=== PATIENT | female | born 1970 | race Caucasian/White ===

== ENCOUNTER 2016-10-04 06:53 | Emergency (ER) | payer SELFPAY ==
[2016-10-04] MEDS ORDERED: DUONEB 0.5 MG/3 MG ONE (06:59)
[2016-10-04 07:00] VITALS: BP 160/88; BMI 37.8
[2016-10-04] MEDS ORDERED: DUONEB 0.5 MG/3 MG NEB ONE (07:02)
[2016-10-04] MEDS ORDERED: ZOFRAN TAB 4 MG PO ONE (07:12)
[2016-10-04] MEDS ORDERED: PROTONIX INJ 40 MG VIAL IVP ONE (07:18)
[2016-10-04] MEDS ORDERED: SOLU-Medrol 125 MG VIAL IVP ONE (07:19)
--- NOTE | 2016-10-04 07:20 | DR.GENAD ---
HPI - PCP Primary Care Physician: nfd - Complaint/Symptoms Chief Complaint:: patient stated for the last 2 weeks she has had abd pain and trouble breathing and vomiting. - Nurses notes reviewed Nurses Notes Review: Yes - Source History Provided: Patient - Mode of Arrival Mode of Arrival: Ambulatory - Timing Onset of Chief Complaint: 10/04/16 Came on: Gradually - Duration Duration: Intermittent How lon Duration: Weeks - Location Location: stomach - Associated Signs and Symptoms Associated Signs and Symptoms: vomiting PMH - PMH Past Medical History: Yes Past Medical History: Asthma, Diabetes Past Surgical History: Yes Surgical History: Hysterectomy - Family History History of Family Medical Conditions: Yes Family Medical History: Cancer, [place] - Social History Does patient currently use any type of tobacco product: Yes Have you used tobacco products in the last 12 months: Yes Type of Tobacco Use: Cigarettes How many years tobacco product used: 10 Does any household member use tobacco: No Alcohol Use: None Do you use any recreational Drugs:: No Lives With: Family Lives Where: Home - infectious screening In the last 2 months have you had wt loss of >10#?: NO Have you had fever, night sweats or hemotysis?: No Have you traveled outside the country in the last 6 months?: No Isolation: Standard ROS - Review of Systems Constitutional: Fever Eyes: No Symptoms Reported ENTM: No Symptoms Reported Respiratoy: Non-Productive Cough Cardiovascular: No Symptoms Reported Gastrointestinal/Abdominal: Diarrhea, Nausea, Vomiting Genitourinary: No Symptoms Reported Neurological: No Symptoms Reported Musculoskeletal: No Symptoms Reported Integumentary: No Symptoms Reported Hematologic/Lymphatic: No Symptoms Reported Endocrine: No Symptoms Reported Psychiatric: No Symptoms Reported PE - Vital Signs Vitals: Temperature 98.4 F Pulse Rate 95 Respiratory Rate 18 Blood Pressure [Right Arm] 154/99 Blood Pressure 160/88 O2 Sat by Pulse Oximetry 97 - General Limitations: No Limitations General Appearance: Alert, In No Apparent Distress - Head Head Exam: Normal Inspection - Eyes Eye exam: Normal Appearance, EOMI. negative: Scleral Icterus, Conjunctival Injection - ENT ENT Exam: Normal Exam, Normal Oropharynx External Ear Exam: Normal External Inspection Throat Exam: Normal Inspection - Neck Neck Exam: Normal Inspection, Full ROM, Trachea Midline - Chest Chest Inspection: Normal Inspection - Respiratory Respiratory Exam: Normal Lung Sounds Bilat. negative: Accessory Muscle Use, Respiratory Distress Respiratory Exam: Bilateral Clear to Auscultation - Cardiovascular Cardiovascular Exam: Regular Rate - Abdominal Exam Abdominal Exam: Normal Inspection, Normal Bowel Sounds, Soft, Tenderness ( epigastric), Hyperactive Bowel Sounds. negative: Distention, Guarding Abdominal Tenderness: Epigastrium - Extremities Extremities Exam: Normal Inspection, Full ROM - Back Back Exam: Normal Inspection, Full ROM - Neurologic Neurological Exam: Alert, Oriented X3, CN II-XII Intact - Psychiatric Psychiatric Exam: Depressed - Skin Skin Exam: Intact, Normal Color ROR - Labs Reviewed Result Diagrams: 10/04/16 07:28 10/04/16 07:28 Laboratory: WBC 14.7 X10^3/uL (3.6-10.0) H 10/04/16 07:28 RBC 5.07 X10^6/uL (3.5-5.4) 10/04/16 07:28 Hgb 14.1 g/dL (12.0-16.0) 10/04/16 07:28 Hct 42.4 % (36.0-47.0) 10/04/16 07:28 MCV 83.5 fL (80.0-100.0) 10/04/16 07:28 MCH 27.8 pg (27.0-34.0) 10/04/16 07:28 MCHC 33.3 g/dL (33.0-35.0) 10/04/16 07:28 RDW 13.7 % (11.6-16.5) 10/04/16 07:28 Plt Count 238 X10^3/uL (150.0-450.0) 10/04/16 07:28 MPV 8.7 fL (7.4-11.0) 10/04/16 07:28 Neut % 68.7 % (42.0-75.0) 10/04/16 07:28 Lymph % 22.4 % (21.0-51.0) 10/04/16 07:28 [place] % 7.8 % (0.0-13.0) 10/04/16 07:28 Eos % 0.7 % (0.9-2.9) L 10/04/16 07:28 Baso % 0.4 % (0.2-1.0) 10/04/16 07:28 Neut # 10.1 x10^3/uL (2.2-4.8) H 10/04/16 07:28 Lymph # 3.3 X10^3/uL (1.3-2.9) H 10/04/16 07:28 [place] # 1.2 x10^3/uL (0.3-0.8) H 10/04/16 07:28 Eos # 0.1 x10^3/uL (0.0-0.2) 10/04/16 07:28 Baso # 0.1 X10^3/uL (0.0-0.1) 10/04/16 07:28 Absolute Nucleated RBC 0.0 /100WBC 10/04/16 07:28 Sodium 146 mmol/L (136-145) H 10/04/16 07:28 Corrected Sodium 147 mmol/L (136-145) H 10/04/16 07:28 Potassium 3.3 mmol/L (3.5-5.1) L 10/04/16 07:28 Chloride 107 mmol/L (98-107) 10/04/16 07:28 Carbon Dioxide 26.6 mmol/L (21-32) 10/04/16 07:28 BUN 11 mg/dL (7-18) 10/04/16 07:28 Creatinine 0.86 mg/dL (0.55-1.02) 10/04/16 07:28 Est GFR (MDRD) Af Amer > 60 (>60) 10/04/16 07:28 Est GFR (MDRD) Non-Af > 60 (>60) 10/04/16 07:28 Glucose 157 mg/dL (65-99) H 10/04/16 07:28 Calcium 9.6 mg/dL (8.5-10.1) 10/04/16 07:28 Corrected Calcium TNP 10/04/16 07:28 Total Bilirubin 0.30 mg/dL (0.2-1.0) 10/04/16 07:28 AST 37 Units/L (15-37) 10/04/16 07:28 ALT 99 Units/L (12-78) H 10/04/16 07:28 Alkaline Phosphatase 144 Units/L (46-116) H 10/04/16 07:28 Total Protein 8.0 g/dL (6.4-8.2) 10/04/16 07:28 Albumin 3.6 g/dL (3.4-5.0) 10/04/16 07:28 Globulin 4.4 g/dL (2.5-4.5) 10/04/16 07:28 Albumin/Globulin Ratio 0.8 Ratio (1.1-2.1) L 10/04/16 07:28 Amylase 38 Units/L (25-115) 10/04/16 07:28 Lipase 137 Units/L (73-393) 10/04/16 07:28 H. pylori IgG Antibody Positive (NEGATIVE) A 10/04/16 07:28 - XRAY XRAY Interpreted by: Radiologist XRAY Findings: AAS: normal - Diagnosis Discharge Problem: Gastritis due to Helicobacter species - Discharge Plan Condition: Stable Prescriptions: Amoxicillin-Clarithromycin W/ [PrevPac 14-day pack] 1 dose PO BID #1 pkg Ondansetron [Zofran Odt] 4 mg PO Q8H PRN #12 tab PRN Reason: Nausea/Vomiting - Follow ups/Referrals Follow ups/Referrals: NFD,None [Primary Care Provider] - 3 days - Instructions
[2016-10-04 07:35] LABS: BASOPHILS # (AUTO) 0.1 X10^3/uL (0.0-0.1); BASOPHILS % (AUTO) 0.4 % (0.2-1.0); EOSINOPHILS # (AUTO) 0.1 x10^3/uL (0.0-0.2); EOSINOPHILS % (AUTO) 0.7 % (0.9-2.9); HEMATOCRIT 42.4 % (36.0-47.0); HEMOGLOBIN 14.1 g/dL (12.0-16.0); LYMPHOCYTES # (AUTO) 3.3 X10^3/uL (1.3-2.9); LYMPHOCYTES % (AUTO) 22.4 % (21.0-51.0); MEAN CORPUSCULAR HEMOGLOBIN 27.8 pg (27.0-34.0); MEAN CORPUSCULAR HGB CONC 33.3 g/dL (33.0-35.0); MEAN CORPUSCULAR VOLUME 83.5 fL (80.0-100.0); MEAN PLATELET VOLUME 8.7 fL (7.4-11.0); MONOCYTES # (AUTO) 1.2 x10^3/uL (0.3-0.8); MONOCYTES % (AUTO) 7.8 % (0.0-13.0); NEUTROPHILS # (AUTO) 10.1 x10^3/uL (2.2-4.8); NEUTROPHILS % (AUTO) 68.7 % (42.0-75.0); PLATELET COUNT 238 X10^3/uL (150.0-450.0); RED BLOOD COUNT 5.07 X10^6/uL (3.5-5.4); RED CELL DISTRIBUTION WIDTH 13.7 % (11.6-16.5); WHITE BLOOD COUNT 14.7 X10^3/uL (3.6-10.0)
[2016-10-04 07:46] LABS: ALANINE AMINOTRANSFERASE 99 Units/L (12-78); ALBUMIN 3.6 g/dL (3.4-5.0); ALKALINE PHOSPHATASE 144 Units/L (46-116); AMYLASE 38 Units/L (25-115); ASPARTATE AMINO TRANSFERASE 37 Units/L (15-37); BLOOD UREA NITROGEN 11 mg/dL (7-18); CALCIUM 9.6 mg/dL (8.5-10.1); CARBON DIOXIDE 26.6 mmol/L (21-32); CHLORIDE 107 mmol/L (98-107); COR NA(FOR HYPERGLY) 147 mmol/L (136-145); CREATININE 0.86 mg/dL (0.55-1.02); GLUCOSE 157 mg/dL (65-99); LIPASE 137 Units/L (73-393); SODIUM 146 mmol/L (136-145); eGFR BLACK RACES > 60 (>60); eGFR NON BLACK RACES > 60 (>60)
--- NOTE | 2016-10-04 07:47 | RAD ---
Acute abdominal series Indication: Vomiting with abdominal pain Comparison: None available Findings: The trachea is midline. The cardiac silhouette is unremarkable. The lungs are clear without focal infiltrate or effusion. The bony thorax is unremarkable. Flat and upright evaluation of the abdomen demonstrates a normal bowel gas pattern. No pathological soft tissue mass or calcification can be observed. The bony structures are grossly intact. Previou s cholecystectomy is noted. IMPRESSION: 1. No acute cardiopulmonary disease. 2. No evidence for acute abdominal pathology identified. Reported By:
[2016-10-04 08:12] LABS: BILIRUBIN,URINE NEGATIVE (NEGATIVE); BLOOD/HEMOGLOBIN,URINE 3+ (NEGATIVE); GLUCOSE, URINE NEGATIVE (NEGATIVE); KETONES,URINE NEGATIVE (NEGATIVE); LEUKOCYTE ESTERASE ,URINE NEGATIVE (NEGATIVE); NITRITES,URINE NEGATIVE (NEGATIVE); PROTEIN,URINE 2+ (NEGATIVE); UROBILINOGEN,URINE NORMAL (NORMAL)
[2016-10-04 08:46] LABS: APPEARANCE,URINE CLEAR (CLEAR); BACTERIA,URINE NEGATIVE /HPF (NEGATIVE); CALCIUM OXALATE CRYSTALS,UR FEW /HPF (NEGATIVE); COLOR,URINE YELLOW (YELLOW); HYALINE CASTS, URINE MANY /LPF (NEGATIVE); MUCUS,URINE MANY /HPF (NEGATIVE); SQUAMOUS EPITHELIAL CELL,UR FEW /HPF (NEGATIVE)
== END 2016-10-04 08:08 | disposition home or self-care (01) ==
LOC: ER 06:53
DX: B96.81 Helicobacter pylori [H. pylori] as the cause of diseases classified elsewhere (principal)
CPT/HCPCS: 36415; 74022; 80053; 81001; 82150; 83690; 85025; 86677; 96374; 96375; 99283; A4216; A4222; J7620

== ENCOUNTER 2016-10-05 19:27 | Observation (INO) | payer SELFPAY ==
[2016-10-05] MEDS ORDERED: DUONEB 0.5 MG/3 MG ONE (19:30)
[2016-10-05] MEDS ORDERED: SOLU-Medrol 125 MG VIAL ONE (19:32)
[2016-10-05] MEDS ORDERED: DUONEB 0.5 MG/3 MG NEB ONE ×2 (19:43→19:44)
[2016-10-05] MEDS ORDERED: SOLU-Medrol 125 MG VIAL IVP ONE (19:43)
--- NOTE | 2016-10-05 19:49 | DR.GENAD ---
HPI - PCP Primary Care Physician: YFN - HPI Comment HPI Comment: PATIENT TOOK MED AT HOME WITHOUT RELIEF. STILL SOB IN ED.SHE IS ALSO HAVING PERSISTENT COUGHINH, PRODUCTIVE, YELLOW SPUTUM. NO FEVER. HISTORY OF ASTHMA. BELIEVE SHE IS HAVING ASTHMA EXACERBATION. - Complaint/Symptoms Chief Complaint Doctors Comments: SOB, CHEST PAIN AND WHEEZING. Chief Complaint:: "I can't breath. I'm having an asthma attack." - Nurses notes reviewed Nurses Notes Review: Yes - Source History Provided: Patient - Mode of Arrival Mode of Arrival: Ambulatory - Timing Onset of Chief Complaint: 10/05/16 Came on: Suddenly - Duration Duration: Constant Duration: Days - Severity Severity: Moderate PMH - PMH Past Medical History: Yes Past Medical History: Asthma, Diabetes Past Surgical History: Yes Surgical History: Hysterectomy - Family History History of Family Medical Conditions: Yes Family Medical History: Cancer, [place] - Social History Does patient currently use any type of tobacco product: Yes Have you used tobacco products in the last 12 months: Yes Type of Tobacco Use: Cigarettes Does any household member use tobacco: Yes Alcohol Use: None Do you use any recreational Drugs:: No Lives With: Significant Other Lives Where: Home - infectious screening In the last 2 months have you had wt loss of >10#?: NO Have you had fever, night sweats or hemotysis?: No Have you traveled outside the country in the last 6 months?: No Isolation: Standard ROS - Review of Systems Constitutional: No Symptoms Reported, Weakness, Fatigue. negative: Chills, Fever Eyes: No Symptoms Reported. negative: Eye Pain, Discharge ENTM: Ear Pain, Nose Discharge, Nose Congestion, Throat Pain Respiratoy: No Symptoms Reported Cardiovascular: Chest Pain Gastrointestinal/Abdominal: No Symptoms Reported, Abdominal Pain, Nausea. negative: Diarrhea, Vomiting Genitourinary: No Symptoms Reported. negative: Dysuria, Frequency, Hematuria Neurological: Headache, Weakness, Dizziness Musculoskeletal: Muscle Pain Integumentary: No Symptoms Reported Hematologic/Lymphatic: No Symptoms Reported Endocrine: No Symptoms Reported All Other Systems: Reviewed and Negative PE - Vital Signs Vitals: Temperature 99.5 F Pulse Rate 108 Respiratory Rate 26 Blood Pressure [Right Arm] 154/99 Blood Pressure 174/109 O2 Sat by Pulse Oximetry 99 - General Limitations: No Limitations General Appearance: Alert - Head Head Exam: Normal Inspection - Eyes Eye exam: Normal Appearance - ENT ENT Exam: Normal External Ear Exam External Ear Exam: Normal External Inspection TM/Canal Exam: Bilateral Normal Nose Exam: Normal Nose Exam Mouth Exam: Normal Inspection Throat Exam: Normal Inspection - Neck Neck Exam: Trachea Midline. negative: Tenderness, Meningismus, Lymphadenopathy - Chest Chest Inspection: Symmetric Chest Wall Rise - Respiratory Respiratory Exam: Respiratory Distress. negative: Chest Wall Tenderness Respiratory Exam: Bilateral Wheezing, Bilateral Rhonchi, Upper Wheezing, Upper Rhonchi, Lower Wheezing, Lower Rhonchi - Cardiovascular Cardiovascular Exam: Regular Rate, Normal Rhythm, Normal Heart Sounds - Abdominal Exam Abdominal Exam: Normal Bowel Sounds, Soft. negative: Tenderness - Extremities Extremities Exam: Normal Inspection - Back Back Exam: Normal Inspection - Neurologic Neurological Exam: Alert, Oriented X3, CN II-XII Intact, Normal Gait, Reflexes Normal. negative: Motor Sensory Deficit - Psychiatric Psychiatric Exam: Anxious - Skin Skin Exam: Normal Color MDM - Additional Information Additional Information Obtained From: Family - Differential Diagnosis Differential Diagnosis: ASTHMA EXACERBATION, BRONCHITIS, PNEUMONIA Course - Treatment Treatment: SEE ORDERS. - Reevaluation 1st: Improved (NEB TREATMENT IN ED. SOB IMPROVING.) 2nd: Improved - Consultation Consultation Comments: DISCUSS PATIENT WITH DR. PABLO. HE WILL ADMIT PATIENT. - Education/Counseling Education/Counseling: Patient, Family, Education Educated On: Treatment, Diagnosis ROR - Labs Reviewed Laboratory Results Reviewed?: Yes Result Diagrams: 10/06/16 04:25 10/05/16 19:40 Laboratory: WBC 19.8 X10^3/uL (3.6-10.0) H 10/06/16 04:25 RBC 4.72 X10^6/uL (3.5-5.4) 10/06/16 04:25 Hgb 13.1 g/dL (12.0-16.0) 10/06/16 04:25 Hct 39.9 % (36.0-47.0) 10/06/16 04:25 MCV 84.6 fL (80.0-100.0) 10/06/16 04:25 MCH 27.7 pg (27.0-34.0) 10/06/16 04:25 MCHC 32.7 g/dL (33.0-35.0) L 10/06/16 04:25 RDW 13.7 % (11.6-16.5) 10/06/16 04:25 Plt Count 271 X10^3/uL (150.0-450.0) 10/06/16 04:25 MPV 9.5 fL (7.4-11.0) 10/06/16 04:25 Neut % 85.9 % (42.0-75.0) H 10/06/16 04:25 Lymph % 10.8 % (21.0-51.0) L 10/06/16 04:25 [place] % 3.0 % (0.0-13.0) 10/06/16 04:25 Eos % 0.0 % (0.9-2.9) L 10/06/16 04:25 Baso % 0.3 % (0.2-1.0) 10/06/16 04:25 Neut # 17.0 x10^3/uL (2.2-4.8) H 10/06/16 04:25 Lymph # 2.1 X10^3/uL (1.3-2.9) 10/06/16 04:25 [place] # 0.6 x10^3/uL (0.3-0.8) 10/06/16 04:25 Eos # 0.0 x10^3/uL (0.0-0.2) 10/06/16 04:25 Baso # 0.1 X10^3/uL (0.0-0.1) 10/06/16 04:25 Absolute Nucleated RBC 0.0 /100WBC 10/06/16 04:25 Sample Site Lr 10/05/16 20:37 ABG pH 7.440 (7.35-7.45) 10/05/16 20:37 ABG pCO2 36.0 mmHg (35.0-45.0) 10/05/16 20:37 ABG pO2 60.0 mmHg (80.0-100.0) L 10/05/16 20:37 ABG HCO3 24.5 mmol/L (22-26) 10/05/16 20:37 ABG O2 Saturation 92.0 % (90-100) 10/05/16 20:37 ABG Base Excess 0.6 mmol/L (-2.0-2.0) 10/05/16 20:37 Sandeep Test Pos 10/05/16 20:37 A-a Gradient 45.0 mmHg 10/05/16 20:37 FiO2 21.000 10/05/16 20:37 Blood Gas Comments Pia well ae 10/05/16 20:37 Sodium 143 mmol/L (136-145) 10/05/16 19:40 Corrected Sodium 145 mmol/L (136-145) 10/05/16 19:40 Potassium 4.7 mmol/L (3.5-5.1) 10/05/16 19:40 Chloride 105 mmol/L (98-107) 10/05/16 19:40 Carbon Dioxide 22.4 mmol/L (21-32) 10/05/16 19:40 BUN 18 mg/dL (7-18) 10/05/16 19:40 Creatinine 0.97 mg/dL (0.55-1.02) 10/05/16 19:40 Est GFR (MDRD) Af Amer > 60 (>60) 10/05/16 19:40 Est GFR (MDRD) Non-Af > 60 (>60) 10/05/16 19:40 Glucose 186 mg/dL (65-99) H 10/05/16 19:40 Calcium 9.6 mg/dL (8.5-10.1) 10/05/16 19:40 Corrected Calcium TNP 10/05/16 19:40 Total Bilirubin 0.20 mg/dL (0.2-1.0) 10/05/16 19:40 AST 20 Units/L (15-37) 10/05/16 19:40 ALT 71 Units/L (12-78) 10/05/16 19:40 Alkaline Phosphatase 129 Units/L (46-116) H 10/05/16 19:40 Total Protein 7.8 g/dL (6.4-8.2) 10/05/16 19:40 Albumin 3.6 g/dL (3.4-5.0) 10/05/16 19:40 Globulin 4.2 g/dL (2.5-4.5) 10/05/16 19:40 Albumin/Globulin Ratio 0.9 Ratio (1.1-2.1) L 10/05/16 19:40 - XRAY XRAY Interpreted by: Self XRAY Findings: XRRAY DISCUSS WITH PATIENT AND HER . - Diagnosis Discharge Problem: Acute bronchitis Qualifiers: Bronchitis organism: other organism Qualified Code(s): J20.8 - Acute bronchitis due to other specified organisms Acute asthma exacerbation Qualifiers: Asthma severity: moderate persistent Qualified Code(s): J45.41 - Moderate persistent asthma with (acute) exacerbation - Discharge Plan Disposition: ADMITTED INPATIENT Condition: Stable - Follow ups/Referrals - Instructions
[2016-10-05 19:57] LABS: BASOPHILS # (AUTO) 0.1 X10^3/uL (0.0-0.1); HEMOGLOBIN 13.6 g/dL (12.0-16.0); MEAN CORPUSCULAR VOLUME 84.1 fL (80.0-100.0); MONOCYTES # (AUTO) 1.8 x10^3/uL (0.3-0.8)
[2016-10-05 20:01] LABS: BASOPHILS % (AUTO) 0.4 % (0.2-1.0); HEMATOCRIT 41.4 % (36.0-47.0); LYMPHOCYTES % (AUTO) 12.7 % (21.0-51.0); MEAN CORPUSCULAR HEMOGLOBIN 27.7 pg (27.0-34.0); MEAN PLATELET VOLUME 9.2 fL (7.4-11.0); MONOCYTES % (AUTO) 7.5 % (0.0-13.0); NEUTROPHILS # (AUTO) 18.8 x10^3/uL (2.2-4.8); NEUTROPHILS % (AUTO) 79.4 % (42.0-75.0); PLATELET COUNT 292 X10^3/uL (150.0-450.0); RED BLOOD COUNT 4.92 X10^6/uL (3.5-5.4); RED CELL DISTRIBUTION WIDTH 13.9 % (11.6-16.5)
[2016-10-05 20:04] LABS: WHITE BLOOD COUNT 23.7 X10^3/uL (3.6-10.0)
--- NOTE | 2016-10-05 20:04 | RAD ---
AP Chest Indication: Chest pain Comparison: 10/04/2016 Findings: The trachea is midline. The cardiac silhouette is unremarkable. There is increased opacity project ing within the periphery of the left lung base, this is suspected to represent soft tissue attenuati on secondary to the left breast soft tissues; however a developing infiltrate in this location is no t entirely excluded and clinical correlation is needed. The remaining lungs are clear. No pleural ef fusion or pneumothorax. No acute osseous abnormality. Impression: See above. Reported By:
[2016-10-05 20:05] LABS: ALANINE AMINOTRANSFERASE 71 Units/L (12-78); ALBUMIN 3.6 g/dL (3.4-5.0); ALKALINE PHOSPHATASE 129 Units/L (46-116); ASPARTATE AMINO TRANSFERASE 20 Units/L (15-37); BLOOD UREA NITROGEN 18 mg/dL (7-18); CALCIUM 9.6 mg/dL (8.5-10.1); CARBON DIOXIDE 22.4 mmol/L (21-32); CHLORIDE 105 mmol/L (98-107); COR NA(FOR HYPERGLY) 145 mmol/L (136-145); CREATININE 0.97 mg/dL (0.55-1.02); GLUCOSE 186 mg/dL (65-99); SODIUM 143 mmol/L (136-145); TOTAL PROTEIN 7.8 g/dL (6.4-8.2); eGFR BLACK RACES > 60 (>60); eGFR NON BLACK RACES > 60 (>60)
[2016-10-05] MEDS ORDERED: TUSSIONEX PENNKINETIC SUSP PO ONE (20:23)
[2016-10-05] MEDS ORDERED: ROCEPHIN VIAL 1 GM 1 GM in NS 50 ML IV + SPIKE MINIBAG* 50 ML IV ONE (20:35)
[2016-10-05] MEDS ORDERED: ATIVAN INJ 2 MG VIAL IVP ONE (20:37)
[2016-10-05] MEDS ORDERED: ROCEPHIN VIAL 1 GM ONE (20:38)
[2016-10-05] MEDS ORDERED: ATIVAN INJ 2 MG VIAL ONE (20:41)
[2016-10-05] MEDS ORDERED: NS 50 ML IV + SPIKE MINIBAG* 50 ML IV ONE (20:41)
[2016-10-05 20:42] LABS: ABG ALLEN TEST POS; ABG BASE EXCESS 0.6 mmol/L (-2.0-2.0); ABG HCO3 24.5 mmol/L (22-26)
[2016-10-05] MEDS ORDERED: TUSSIONEX PENNKINETIC SUSP ONE (20:50)
[2016-10-05] MEDS ORDERED: TYGACIL 50 MG VIAL 100 MG in NS 100 ML IV 100 ML IV ONE (21:38)
[2016-10-05] MEDS ORDERED: NS 250 ML IV 250 ML IV ONE (22:49)
[2016-10-05] MEDS ORDERED: PREVNAR 13 IM ONE (23:14)
[2016-10-06] MEDS: DUONEB 0.5 MG/3 MG NEB SCH ×4 (00:39→13:00)
[2016-10-06 06:15] LABS: BASOPHILS # (AUTO) 0.1 X10^3/uL (0.0-0.1); BASOPHILS % (AUTO) 0.3 % (0.2-1.0); HEMATOCRIT 39.9 % (36.0-47.0); HEMOGLOBIN 13.1 g/dL (12.0-16.0); LYMPHOCYTES # (AUTO) 2.1 X10^3/uL (1.3-2.9); LYMPHOCYTES % (AUTO) 10.8 % (21.0-51.0); MEAN CORPUSCULAR HEMOGLOBIN 27.7 pg (27.0-34.0); MEAN CORPUSCULAR HGB CONC 32.7 g/dL (33.0-35.0); MEAN CORPUSCULAR VOLUME 84.6 fL (80.0-100.0); MEAN PLATELET VOLUME 9.5 fL (7.4-11.0); MONOCYTES # (AUTO) 0.6 x10^3/uL (0.3-0.8); NEUTROPHILS % (AUTO) 85.9 % (42.0-75.0); PLATELET COUNT 271 X10^3/uL (150.0-450.0); RED BLOOD COUNT 4.72 X10^6/uL (3.5-5.4); RED CELL DISTRIBUTION WIDTH 13.7 % (11.6-16.5); WHITE BLOOD COUNT 19.8 X10^3/uL (3.6-10.0)
[2016-10-06] MEDS ORDERED: TYGACIL 50 MG VIAL 50 MG in NS 100 ML IV 100 ML IV SCH (09:00)
[2016-10-06] MEDS ORDERED: PREDNISONE TAB 10 MG PO SCH (09:00)
[2016-10-06] MEDS ORDERED: SYMBICORT INH 160/4.5 mcg IN SCH (10:15)
--- NOTE | 2016-10-06 10:54 | DR.H&P ---
H&P - History & Physical for Day of: H&P Date: 10/05/16 - Chief Complaint Chief Complaint: SHORTNESS OF BREATH - Allergies Allergies/Adverse Reactions: Allergies Allergy/AdvReac Type Severity Reaction Status Date / Time Aloe Allergy Unknown Verified 10/04/16 06:54 Diphenhydramine Allergy Unknown Verified 10/04/16 06:54 [From Benadryl] Dextromethorphan Allergy Verified 10/04/16 06:54 [From Mucinex DM] Guaifenesin [From Mucinex DM] Allergy Verified 10/04/16 06:54 Yellow Dye [From Mucinex DM] Allergy Verified 10/04/16 06:54 - History of Present Illness History of Present Illness: PATIENT PRESENTED TO THE EMERGENCY ROOM WITH COMPLAINT OF SHORTNEES OF BREATH AND STATES SHE IS HAVING AN ASTHMA ATTACK. UPON ARRIVAL TO THE EMERGENCY ROOM PATIENT OXYGEN SATURATION WAS 96 ON RA. LABS REVEALED AN ELEVATED WBC COUNT OF 23.7. pATINET ADMITED WITH ASTHMA EXACERBATION AND BROCHITIS - Past Medical History Past Medical History: Asthma, Diabetes - Past Surgical History Surgical History: Hysterectomy - Family History Family Medical History: Cancer, [place] - Social History Does patient currently use any type of tobacco product: Yes Have you used tobacco products in the last 12 months: Yes Type of Tobacco Use: Cigarettes How many years tobacco product used: 10 Does any household member use tobacco: Yes Alcohol Use: None Drug Use: None - Review of Systems Constitutional: Weakness Eyes: No Symptoms Reported ENT: Nose Discharge, Nose Congestion Respiratory: Cough, Shortness of Breath, SOB with Excertion Cardiovascular: No Symptoms Reported Gastrointestinal: Nausea, Abdominal Pain Genitourinary: No Symptoms Reported Musculoskeletal: No Symptoms Reported Skin: No Symptoms Reported Neurological: No Symptoms Reported - Physical Exam Vital Signs: Temperature 97.5 F Pulse Rate [Right Brachial] 92 Pulse Rate 93 Respiratory Rate 20 Blood Pressure [Right Arm] 132/80 O2 Sat by Pulse Oximetry 93 Oriented: Normal Eyes: Normal Ear: Normal Nose: Normal Throat: Normal Respiratory: Clear Throughout Cardiovascular: Normal : Normal Auscultation: Bowel Sounds: Normal Palpation: Normal Tenderness: Normal Skin: Normal Musculoskeletal: Normal Psychiatric: Normal Mood Description: Calm, Appropriate Affect: Normal Speech Pattern: Clear, Appropriate - Assessment/Plan (1) Acute asthma exacerbation Qualifiers: Asthma severity: moderate persistent Qualified Code(s): J45.41 - Moderate persistent asthma with (acute) exacerbation Status: Acute Plan: ALBUTEROL NEBULIZER OXGEN (2) Acute bronchitis Qualifiers: Bronchitis organism: other organism Qualified Code(s): J20.8 - Acute bronchitis due to other specified organisms Status: Acute Plan: TYGACIL
--- NOTE | 2016-10-06 11:43 | RAD ---
HISTORY: Asthma, nausea, abdominal pain Study: Acute abdominal series Comparison: October 05, 2016 Findings: The trachea is midline. The cardiac silhouette is unremarkable. The lungs are clear without focal infiltrate or effusion. The bony thorax is unremarkable. Flat plate and upright evaluation of the abdomen demonstrates a normal bowel gas pattern. No pneumop eritoneum is identified.. No pathological soft tissue mass or calcification can be observed. The b abdirizak structures are grossly intact. IMPRESSION: 1. No acute cardiopulmonary disease. 2. No evidence for acute abdominal pathology identified. Reported By:
[2016-10-06 12:49] VITALS: BMI 42.7
[2016-10-06 12:54] VITALS: BP 140/76
[2016-10-06] MEDS ORDERED: PULMICORT NEB TX 0.5 MG NEB SCH (21:00)
== END 2016-10-06 16:25 | disposition home or self-care (01) ==
LOC: ER 19:30 → MED/SURG 21:51
PROVIDERS: ADMIT Obstetrics & Gynecology Obstetrics; ATTEND Obstetrics & Gynecology Obstetrics
PROC: 3E0234Z Introduction of Serum, Toxoid and Vaccine into Muscle, Percutaneous Approach (ICD-10-PCS; principal; 2016-10-05)
DX: J45.41 Moderate persistent asthma with (acute) exacerbation (principal); J20.8 Acute bronchitis due to other specified organisms; R06.02 Shortness of breath; R07.89 Other chest pain; R51 Headache; R73.09 Other abnormal glucose; Z23 Encounter for immunization
CPT/HCPCS: 36415; 36600; 71010; 74022; 80053; 82803; 85025; 94640; 94760; 96365; 96374; 96375; 99284; A4222; G0378; J0696; J2060; J2930; J7506; J7620

== ENCOUNTER 2016-10-08 13:49 | Emergency (ER) | payer SELFPAY ==
[2016-10-08 13:54] VITALS: BP 176/90; BMI 37.8
--- NOTE | 2016-10-08 14:05 | DR.DIZZY ---
HPI - Time seen Time seen: 14:06 - PCP Primary Care Physician: BEV - HPI Comment HPI Comment: PATIENT ALSO HAVE A GENERALIZE RASH SHE BELIEVE MAY BE DUE TO HER MEDICATION. DISCHARGE FROM HOSPITAL TWO DAYS AGO. NO FEVER. - Complaint Chief Complaint Doctor Comments: HEADACHE, DIZZINESS AND NEAR SYNCOPAL EPISODE. HAPPEN AT [facility]. TODAY BEFORE COMING TO ED. Chief Complaint:: PT. STATES WHILE AT [facility] STANDING OUTSIDE, SHE BECAME VERY FAINT BUT DID NOT PASS OUT. PT. STATES IT FEELS LIKE HER NERVES ARE "SEIZING" AND SHE HAS SHARP PAINS GOING TO HER HEAD. - Nurses Notes Reviewed Nurses Notes Review: Yes - Source History Provided: Patient - Mode of Arrival Mode of Arrival: Ambulatory - Timing Onset of Chief Complaint: 10/08/16 Came on: Suddenly - Duration Duration: Constant Duration: Hours - Location of Weakness Weakness Location: Generalized - Context Onset: At rest Does pt take pot. toxic medication?: No History of: None Stroke Symptoms: Dizziness - Severity Severity: Normal activity level - Modifying factors Worsens: Nothing - Associated signs and symptoms Associated Signs and Symptoms: Vertigo, Headache, Nausea PMH - PMH Past Medical History: Yes Past Medical History: Asthma, Diabetes Past Surgical History: Yes Surgical History: Cholecystectomy, Hysterectomy - Family History History of Family Medical Conditions: Yes Family Medical History: Cancer, [place] - Social History Does patient currently use any type of tobacco product: No Have you used tobacco products in the last 12 months: Yes Type of Tobacco Use: None Does any household member use tobacco: No Alcohol Use: None Do you use any recreational Drugs:: No Lives With: Spouse Lives Where: Home - infectious screening In the last 2 months have you had wt loss of >10#?: NO Have you had fever, night sweats or hemotysis?: No Have you traveled outside the country in the last 6 months?: No Isolation: Standard ROS - Review of Systems Constitutional: Weakness, Fatigue, Loss of Appetite. negative: See HPI, Diaphoresis, Fever Eyes: No Symptoms Reported. negative: Eye Pain, Discharge ENTM: negative: Ear Pain, Ear Discharge, Hearing Loss, Nose Pain, Nose Discharge , Nose Congestion, Throat Pain Respiratoy: Non-Productive Cough, Wheezing. negative: Short of Breath, Hemoptysis Cardiovascular: No Symptoms Reported. negative: Chest Pain Gastrointestinal/Abdominal: Nausea. negative: Abdominal Pain, Vomiting Genitourinary: No Symptoms Reported. negative: Dysuria, Frequency, Hematuria Neurological: Headache, Weakness, Dizziness Musculoskeletal: Muscle Pain Integumentary: No Symptoms Reported Hematologic/Lymphatic: No Symptoms Reported Endocrine: No Symptoms Reported All Other Systems: Reviewed and Negative PE - Vital Signs Vitals: Temperature 99.3 F Pulse Rate 83 Respiratory Rate 22 Blood Pressure [Right Arm] 140/76 Blood Pressure 176/90 O2 Sat by Pulse Oximetry 95 - General Limitations: No Limitations General Appearance: Alert - Head Head Exam: Normal Inspection - Eyes Eye exam: Normal Appearance Pupils: Regular, Round: Bilateral, Reactive: Bilateral Sclera/Conjunctival: Normal Inspection: Bilateral - ENT ENT Exam: Normal External Ear Exam - Neck Neck Exam: Normal Inspection - Chest Chest Inspection: Symmetric Chest Wall Rise - Respiratory Respiratory Exam: negative: Chest Wall Tenderness Respiratory Exam: Bilateral Rhonchi, Lower Rhonchi - Cardiovascular Cardiovascular Exam: Regular Rate, Normal Rhythm - Abdominal Exam Abdominal Exam: Normal Bowel Sounds, Soft. negative: Tenderness - Rectal Rectal Exam: Deferred - Extremeties Extremities Exam: Normal Inspection - Back Back Exam: Normal Inspection - Neurologic Neurological Exam: Alert, Oriented X3, CN II-XII Intact, Normal Gait, Reflexes Normal. negative: Motor Sensory Deficit Patient Oriented To: Person, Place, Time Speech: Fluid Speech Cranial Nerve Exam: EOM Function (II, III, IV, ): Normal, Facial Sensation (V) : Normal, Facial Palsy (VII): Normal, Gag reflex (XI): Normal, Spinal Accessory Function (XI): Normal, Tongue Deviation: Normal Motor Strength - LUE: 5/5 Motor Strength - RUE: 5/5 Motor Strength - LLE: 5/5 Motor Strength - RLE: 5/5 Upper Motor Neuron Exam: Babinski Sign: Normal DTR: achilles tendon (L): 4+, achilles tendon (R): 4+, brachioradialis (L): 4+, brachioradialis (R): 4+, Patellar (L): 4+, patellar (R): 4+ - Psychiatric Psychiatric Exam: Anxious - Skin Skin Exam: Normal Color MDM - Additional Information Additional Information Obtained From: Family - Differential Diagnosis Differential Diagnosis: CVA, Dehydration, Hypoglycemia (DIZZINESS, OTITIS MEDIA , SINUSITIS), Labyrinthitis, Vertigo- central Course - Treatment Treatment: SEE ORDERS - Education/Counseling Education/Counseling: Patient, Family, Education Educated On: Treatment, Diagnosis, Needs for Follow Up ROR - Labs Reviewed Laboratory Results Reviewed?: Yes Result Diagrams: 10/08/16 14:29 10/08/16 14:29 Laboratory: WBC 16.6 X10^3/uL (3.6-10.0) H 10/08/16 14:29 RBC 4.94 X10^6/uL (3.5-5.4) 10/08/16 14:29 Hgb 13.6 g/dL (12.0-16.0) 10/08/16 14:29 Hct 41.5 % (36.0-47.0) 10/08/16 14:29 MCV 84.0 fL (80.0-100.0) 10/08/16 14:29 MCH 27.5 pg (27.0-34.0) 10/08/16 14:29 MCHC 32.8 g/dL (33.0-35.0) L 10/08/16 14:29 RDW 13.8 % (11.6-16.5) 10/08/16 14:29 Plt Count 249 X10^3/uL (150.0-450.0) 10/08/16 14:29 Plt Count Comment Adequate (ADEQUATE) 10/08/16 14:29 MPV 8.9 fL (7.4-11.0) 10/08/16 14:29 Neut % 74.5 % (42.0-75.0) 10/08/16 14:29 Lymph % 20.8 % (21.0-51.0) L 10/08/16 14:29 [place] % 4.0 % (0.0-13.0) 10/08/16 14:29 Eos % 0.2 % (0.9-2.9) L 10/08/16 14:29 Baso % 0.5 % (0.2-1.0) 10/08/16 14:29 Neut # 12.4 x10^3/uL (2.2-4.8) H 10/08/16 14:29 Lymph # 3.5 X10^3/uL (1.3-2.9) H 10/08/16 14:29 [place] # 0.7 x10^3/uL (0.3-0.8) 10/08/16 14:29 Eos # 0.0 x10^3/uL (0.0-0.2) 10/08/16 14:29 Baso # 0.1 X10^3/uL (0.0-0.1) 10/08/16 14:29 Absolute Nucleated RBC 0.0 /100WBC 10/08/16 14:29 Total Counted 100 10/08/16 14:29 Neutrophils % (Manual) 73 % (39-76) 10/08/16 14:29 Lymphocytes % (Manual) 26 % (13-43) 10/08/16 14:29 Monocytes % (Manual) 1 % (4-9) L 10/08/16 14:29 Plt Morphology Comment Normal (NORMAL) 10/08/16 14:29 RBC Morphology Normal (NORMAL) 10/08/16 14:29 Sodium 141 mmol/L (136-145) 10/08/16 14:29 Corrected Sodium 144 mmol/L (136-145) 10/08/16 14:29 Potassium 4.0 mmol/L (3.5-5.1) 10/08/16 14:29 Chloride 102 mmol/L (98-107) 10/08/16 14:29 Carbon Dioxide 25.1 mmol/L (21-32) 10/08/16 14:29 BUN 25 mg/dL (7-18) H 10/08/16 14:29 Creatinine 1.14 mg/dL (0.55-1.02) H 10/08/16 14:29 Est GFR (MDRD) Af Amer > 60 (>60) 10/08/16 14:29 Est GFR (MDRD) Non-Af 55 (>60) L 10/08/16 14:29 Glucose 227 mg/dL (65-99) H 10/08/16 14:29 Calcium 8.7 mg/dL (8.5-10.1) 10/08/16 14:29 Corrected Calcium 9.4 mg/dL (8.5-10.1) 10/08/16 14:29 Total Bilirubin 0.20 mg/dL (0.2-1.0) 10/08/16 14:29 AST 7 Units/L (15-37) L 10/08/16 14:29 ALT 44 Units/L (12-78) 10/08/16 14:29 Alkaline Phosphatase 125 Units/L (46-116) H 10/08/16 14:29 Creatine Kinase 95 Units/L (26-192) 10/08/16 14:29 CK-MB (CK-2) < 1.0 ng/mL (0-4.0) 10/08/16 14:29 CK/CKMB % Calc 1.1 % (<4) 10/08/16 14:29 Troponin I < 0.02 ng/mL (0-1.5) 10/08/16 14:29 Total Protein 6.7 g/dL (6.4-8.2) 10/08/16 14:29 Albumin 3.1 g/dL (3.4-5.0) L 10/08/16 14: Globulin 3.6 g/dL (2.5-4.5) 10/08/16 14: Albumin/Globulin Ratio 0.9 Ratio (1.1-2.1) L 10/08/16 14:29 Specimen Type Clean catch urine 10/08/16 14:31 Urine Color Yellow (YELLOW) 10/08/16 14:31 Urine Appearance Hazy (CLEAR) 10/08/16 14:31 Urine pH 6.0 (5.0 - 8.0) 10/08/16 14:31 Ur Specific [place] 1.025 (1.000-1.030) 10/08/16 14:31 Urine Protein Negative (NEGATIVE) 10/08/16 14:31 Urine Glucose (UA) 1+ (NEGATIVE) 10/08/16 14:31 Urine Ketones Negative (NEGATIVE) 10/08/16 14:31 Urine Occult Blood 1+ (NEGATIVE) 10/08/16 14:31 Urine Nitrite Negative (NEGATIVE) 10/08/16 14:31 Urine Bilirubin Negative (NEGATIVE) 10/08/16 14:31 Urine Urobilinogen Normal (NORMAL) 10/08/16 14:31 Ur Leukocyte Esterase Negative (NEGATIVE) 10/08/16 14:31 Urine RBC 0-2 /HPF (NEGATIVE) 10/08/16 14:31 Urine WBC 0-2 /HPF (NEGATIVE) 10/08/16 14:31 Ur Squamous Epith Cells Few /HPF (NEGATIVE) 10/08/16 14:31 Urine Bacteria Trace /HPF (NEGATIVE) 10/08/16 14:31 Ur Culture Indicated? No/not indicated 10/08/16 14:31 - XRAY XRAY Interpreted by: Radiologist XRAY Findings: REPORT DISCUSS WITH PATIENT. - Diagnosis Discharge Problem: Dizziness Vertigo of central origin Qualifiers: Laterality: right Qualified Code(s): H81.41 - Vertigo of central origin, right ear - Discharge Plan Disposition: 01 HOME, SELF-CARE Condition: Stable Prescriptions: Hydroxyzine Pamoate [Vistaril] 25 mg PO HS PRN #20 cap PRN Reason: Insomnia - Follow ups/Referrals Follow ups/Referrals: ROSETTE PABLO [Primary Care Provider] - 10/09/16 - Instructions Instructions: Rash, [id number], Dizziness, [id number], Vertigo, Easy-to- Read Additional Instructions: RETURN TO ED IF WORAE.
[2016-10-08] MEDS ORDERED: TORADOL 60 MG VIAL IM ONE (14:18)
[2016-10-08] MEDS ORDERED: ATIVAN INJ 2 MG VIAL IM ONE (14:18)
[2016-10-08] MEDS ORDERED: ATIVAN INJ 2 MG VIAL ONE (14:22)
[2016-10-08] MEDS ORDERED: TORADOL 60 MG VIAL ONE (14:22)
[2016-10-08 14:36] LABS: BASOPHILS # (AUTO) 0.1 X10^3/uL (0.0-0.1); BASOPHILS % (AUTO) 0.5 % (0.2-1.0); EOSINOPHILS % (AUTO) 0.2 % (0.9-2.9); HEMATOCRIT 41.5 % (36.0-47.0); HEMOGLOBIN 13.6 g/dL (12.0-16.0); LYMPHOCYTES # (AUTO) 3.5 X10^3/uL (1.3-2.9); LYMPHOCYTES % (AUTO) 20.8 % (21.0-51.0); MEAN CORPUSCULAR HEMOGLOBIN 27.5 pg (27.0-34.0); MEAN CORPUSCULAR HGB CONC 32.8 g/dL (33.0-35.0); MEAN PLATELET VOLUME 8.9 fL (7.4-11.0); MONOCYTES # (AUTO) 0.7 x10^3/uL (0.3-0.8); NEUTROPHILS # (AUTO) 12.4 x10^3/uL (2.2-4.8); NEUTROPHILS % (AUTO) 74.5 % (42.0-75.0); PLATELET COUNT 249 X10^3/uL (150.0-450.0); RED BLOOD COUNT 4.94 X10^6/uL (3.5-5.4); RED CELL DISTRIBUTION WIDTH 13.8 % (11.6-16.5); WHITE BLOOD COUNT 16.6 X10^3/uL (3.6-10.0)
[2016-10-08 14:38] LABS: BILIRUBIN,URINE NEGATIVE (NEGATIVE); BLOOD/HEMOGLOBIN,URINE 1+ (NEGATIVE); GLUCOSE, URINE 1+ (NEGATIVE); KETONES,URINE NEGATIVE (NEGATIVE); LEUKOCYTE ESTERASE ,URINE NEGATIVE (NEGATIVE); NITRITES,URINE NEGATIVE (NEGATIVE); PROTEIN,URINE NEGATIVE (NEGATIVE); UROBILINOGEN,URINE NORMAL (NORMAL)
[2016-10-08 14:44] LABS: APPEARANCE,URINE HAZY (CLEAR); BACTERIA,URINE TRACE /HPF (NEGATIVE); COLOR,URINE YELLOW (YELLOW); RBC,URINE 0-2 /HPF (NEGATIVE); SQUAMOUS EPITHELIAL CELL,UR FEW /HPF (NEGATIVE)
[2016-10-08 14:51] LABS: PLATELET MORPHOLOGY COMMENT NORMAL (NORMAL)
--- NOTE | 2016-10-08 14:51 | CT ---
HISTORY: Dizziness and head pain Study: CT brain without contrast Comparison: None Technique: Multiple axial images of the brain were obtained from the skull base to the vertex without administr ation of IV contrast. Findings: No acute intraparenchymal hemorrhage or mass can be identified. No extra-axial fluid collections ar e seen. No alteration in the attenuation of the brain parenchyma can be identified to suggest acute or subacute ischemic change. The ventricular system is symmetric and nondilated. The extracranial structures are grossly unremarkable. IMPRESSION: 1. No acute intracranial process can be identified. Reported By:
[2016-10-08 15:15] LABS: BLOOD UREA NITROGEN 25 mg/dL (7-18); CALCIUM 8.7 mg/dL (8.5-10.1); CARBON DIOXIDE 25.1 mmol/L (21-32); CHLORIDE 102 mmol/L (98-107); COR NA(FOR HYPERGLY) 144 mmol/L (136-145); CREATININE 1.14 mg/dL (0.55-1.02); GLUCOSE 227 mg/dL (65-99); SODIUM 141 mmol/L (136-145); TROPONIN I < 0.02 ng/mL (0-1.5); eGFR BLACK RACES > 60 (>60); eGFR NON BLACK RACES 55 (>60)
[2016-10-08 15:19] LABS: ALANINE AMINOTRANSFERASE 44 Units/L (12-78); ALBUMIN 3.1 g/dL (3.4-5.0); ALKALINE PHOSPHATASE 125 Units/L (46-116); ASPARTATE AMINO TRANSFERASE 7 Units/L (15-37); CKMB % 1.1 % (<4); COR CA(FOR HYPOALB) 9.4 mg/dL (8.5-10.1); CREATINE KINASE 95 Units/L (26-192); CREATINE KINASE MB < 1.0 ng/mL (0-4.0); TOTAL PROTEIN 6.7 g/dL (6.4-8.2)
== END 2016-10-08 15:36 | disposition home or self-care (01) ==
LOC: ER 13:57
DX: R42 Dizziness and giddiness (principal); H81.41 Vertigo of central origin, right ear; R51 Headache
CPT/HCPCS: 36415; 70450; 80053; 81001; 82550; 82553; 84484; 85025; 96372; 99282; 99283; J1885; J2060

== ENCOUNTER 2017-05-13 15:58 | Emergency (ER) | payer SELFPAY ==
[2017-05-13 16:01] VITALS: BMI 36.6
--- NOTE | 2017-05-13 16:23 | DR.EXTPAIN ---
HPI - Time seen Time seen: 16:25 - PCP Primary Care Physician: BEV - Complaint/Symptoms Chief Complaint Doctor Comments: Patient reports that she fell down three steps three days ago, she now has pain from right shoulder to the tip of fingers. She also c/o right elbow pain. Chief Complaint:: PT. STATES SHE FELL DOWN HER STEPS 2 DAYS AGO, LANDING ON HER RIGHT ARM. PT. C/O PAIN FROM RIGHT UPPER ARM THAT RADIATES DOWN TO HER RIGHT HAND. PT. STATES HER RIGHT HAND IS GOING NUMB. - Source History Provided: Patient - Mode of arrival Mode of Arrival: Ambulatory - Timing Onset of Chief Complaint: 05/11/17 PMH - PMH Past Medical History: Yes Past Medical History: Asthma, Diabetes Past Medical History Comment: HYPOGLYCEMIC Past Surgical History: Yes Surgical History: Cholecystectomy, Hysterectomy - Family History History of Family Medical Conditions: Yes Family Medical History: Cancer, [place] - Social History Does patient currently use any type of tobacco product: No Have you used tobacco products in the last 12 months: No Type of Tobacco Use: None Does any household member use tobacco: No Alcohol Use: None Do you use any recreational Drugs:: No Lives With: Family Lives Where: Home - infectious screening In the last 2 months have you had wt loss of >10#?: NO Have you had fever, night sweats or hemotysis?: No Have you traveled outside the country in the last 6 months?: No Isolation: Standard ROS - Review of Systems Constitutional: No Symptoms Reported Eyes: No Symptoms Reported ENTM: No Symptoms Reported Respiratoy: No Symptoms Reported Cardiovascular: No Symptoms Reported Gastrointestinal/Abdominal: No Symptoms Reported Genitourinary: No Symptoms Reported Neurological: No Symptoms Reported Musculoskeletal: No Symptoms Reported Integumentary: No Symptoms Reported Hematologic/Lymphatic: No Symptoms Reported Endocrine: No Symptoms Reported Psychiatric: No Symptoms Reported All Other Systems: Reviewed and Negative PE - Vital Signs Vitals: Temperature 98.9 F Pulse Rate [Left Brachial] 87 Pulse Rate 86 Respiratory Rate 17 Blood Pressure [Left Arm] 189/105 Blood Pressure [Right Arm] 140/76 Blood Pressure 192/111 O2 Sat by Pulse Oximetry 96 - General Limitations: No Limitations General Appearance: Alert, In No Apparent Distress - Head Head Exam: Normal Inspection, Atraumatic - Eyes Eye exam: Normal Appearance, PERRL, EOMI. negative: Conjunctival Injection - ENT ENT Exam: Normal Exam - Neck Neck Exam: Normal Inspection, Full ROM - Chest Chest Inspection: Normal Inspection - Respiratory Respiratory Exam: Normal Lung Sounds Bilat Respiratory Exam: Bilateral Clear to Auscultation - Cardiovascular Cardiovascular Exam: Regular Rate, Normal Rhythm - Abdominal Exam Abdominal Exam: Normal Inspection Abdominal Tenderness: negative: RUQ, RLQ, LUQ, LLQ, Epigastrium, Suprapubic, Diffuse, Mild, Moderate, Severe, Other - Extremities Extremities Exam: Normal Inspection, Full ROM - Upper Extremities Shoulder Exam: Normal Inspection, Tenderness over AC Joint. negative: Deformity Arm Exam: Tenderness (right) Elbow Exam: Normal Inspection Hand Exam: Tenderness Neuromotor Exam: Normal Exam Neurosensory Exam: Normal Exam Hand Tendon Exam: Flexor Digitorium Profundus (Location) Upper Ext. Vascular Exam: Capillary Refill - Lower Extremities Hip/Pelvis Exam: Normal Inspection Upper Leg Exam: Normal Inspection, Full ROM Knee Exam: Normal Inspection, Full ROM Lower Leg Exam: Normal Inspection Ankle Exam: Normal Inspection Foot/Toe Exam: Normal Inspection Neurovascular/Tendon Exam: Normal Capillary Refill Gait Exam: Observed and Normal - Back Back Exam: Normal Inspection, Full ROM - Neurological Neurological Exam: Alert, Oriented X3, CN II-XII Intact - Psychiatric Psychiatric Exam: Normal Affect - Skin Skin Exam: Warm, Dry, Intact Type of Lesion: Rash, Abscess Distribution: Generalized Course - Reevaluation 1st: Improved ROR - XRAY XRAY Interpreted by: Radiologist (Right Shoulder: negative for fracture;Elbow: negative for acute injury) - Diagnosis Discharge Problem: Contusion of right shoulder Qualifiers: Encounter type: initial encounter Qualified Code(s): S40.011A - Contusion of right shoulder, initial encounter Contusion of right elbow Qualifiers: Encounter type: initial encounter Qualified Code(s): S50.01XA - Contusion of right elbow, initial encounter - Discharge Plan Condition: Stable - Follow ups/Referrals Follow ups/Referrals: ROSETTE PABLO [Primary Care Provider] - 3 days - Instructions
[2017-05-13] MEDS ORDERED: TORADOL 60 MG VIAL IM ONE (16:25)
[2017-05-13] MEDS ORDERED: TORADOL 60 MG VIAL ONE (16:28)
--- NOTE | 2017-05-13 16:58 | RAD ---
Examination: Right elbow, three views History: Fell Findings: No definite fracture, dislocation, articular deformity or synovial distension. Impression: No acute injury identified. Reported By:
--- NOTE | 2017-05-13 16:59 | RAD ---
Examination: Right shoulder, three views History: Fell 3 days ago Findings: No definite fracture, dislocation or other recent trauma. The humeral head is in normal pos ition. Joint spaces are preserved. Impression: No acute injury identified. Reported By:
[2017-05-13 17:16] VITALS: BP 144/81
== END 2017-05-13 17:23 | disposition home or self-care (01) ==
LOC: ER 15:58
DX: S40.011A Contusion of right shoulder, initial encounter (principal); S50.01XA Contusion of right elbow, initial encounter; W10.9XXA Fall (on) (from) unspecified stairs and steps, initial encounter; Y92.9 Unspecified place or not applicable
CPT/HCPCS: 73030; 73070; 96372; 99282; J1885

== ENCOUNTER 2020-02-14 16:32 | Observation (INO) ==
[2020-02-14 16:37] VITALS: BMI 44.9
--- NOTE | 2020-02-14 16:52 | DR.SOBA ---
HPI Time Seen Time Seen by Provider: 02/14/20 16:40 Primary Care Physician Primary Care Physician: GEE Complaints Chief Complaint Doctors Comments: Placed on zPak after covid19 diagnosis. Chief Complaint:: PT C/O BEING COVID POSITIVE WITH WORSENING SYMPTOMS. PT STAES SHE HAS BEEN HAVING WORSE SHORTNESS OF BREATH, SEVERE HEADACHE, CHEST PAIN THAT RADIATES AROUND TO BACK. PT WAS DIAGNOSED ON THE . COVID-19 Coronavirus risk:travel/contact w/high risk person: No Has patient experienced Coronavirus symptoms: Yes Coronavirus symptoms experienced: Fever, Coughing and Shortness of Breath Reviewed Nurses Notes Reviewed: Yes Source History Provided: Patient Mode of Arrival Mode of Arrival: Ambulatory Timing Onset of Chief Complaint: 02/13/20 Duration Duration: Days Context Onset:: At Rest PE Risk Factors:: None History of:: Asthma Currently on:: Inhaled Bronchodilators Prehospital Care:: None Modifying Factors Worsens:: Exertion Associated Signs and Symptoms Associated Signs and Symptoms: Cough and Chest Pain (achy pleuritic) If Chest Pain Quality: Aching and Pleuritic Location: Right Lower Chest, Left Lower Chest and Chest Wall If Cough Cough: Clear PMH PMH Past Medical History: Yes Past Medical History: Asthma and Diabetes Past Surgical History: Yes Surgical History: Cholecystectomy and Hysterectomy Family History History of Family Medical Conditions: Yes Family Medical History: Cancer and [place] Social History Does any household member use tobacco: No Alcohol Use: None Do you use any recreational Drugs:: No Lives With: Family Lives Where: Home Travel Risk Coronavirus risk:travel/contact w/high risk person: No Has patient experienced Coronavirus symptoms: Yes Coronavirus symptoms experienced: Fever, Coughing and Shortness of Breath Infectious screening In the last 2 months have you had wt loss of >10#?: NO Have you had fever, night sweats or hemotysis?: No Have you traveled outside the country in the last 6 months?: No Isolation: Droplet ROS Review of Systems Constitutional: See HPI Eyes: No Symptoms Reported ENTM: No Symptoms Reported Respiratoy: Non-Productive Cough and Short of Breath Cardiovascular: Chest Pain (pleuritic) Gastrointestinal/Abdominal: No Symptoms Reported Genitourinary: No Symptoms Reported Neurological: No Symptoms Reported Musculoskeletal: No Symptoms Reported Integumentary: No Symptoms Reported Hematologic/Lymphatic: No Symptoms Reported Endocrine: No Symptoms Reported All Other Systems: Reviewed and Negative PE Vital Signs Vitals: Temperature 98.2 F Pulse Rate 107 Respiratory Rate 20 Blood Pressure [Left Arm] 163/97 Blood Pressure [Right Arm] 140/76 Blood Pressure 129/84 O2 Sat by Pulse Oximetry 93 General Limitations: No Limitations General Appearance: Alert and In No Apparent Distress Head Head Exam: Normal Inspection and Atraumatic Eyes Eye exam: Normal Appearance and EOMI ENT ENT Exam: Normal Exam and Normal Oropharynx Neck Neck Exam: Normal Inspection, Full ROM and Trachea Midline Chest Chest Inspection: Normal Inspection Respiratory Respiratory Exam: Normal Lung Sounds Bilat; negative Respiratory Distress Respiratory Exam: Bilateral: Clear to Auscultation Cardiovascular Cardiovascular Exam: Regular Rate Abdominal Exam Abdominal Exam: Normal Inspection Extremities Extremities Exam: Normal Inspection and Full ROM Back Back Exam: Normal Inspection and Full ROM Neurologic Neurological Exam: Alert, Oriented X3, CN II-XII Intact and Normal Gait Psychiatric Psychiatric Exam: Anxious and Flat Affect Skin Skin Exam: Normal Color COURSE Consultation Called: 18:29 Call Returned: 18:30 Consultation Comments: case discussed with Dr. PABLO admit for covid19 treatment ROR Labs Reviewed Result Diagrams: 02/14/20 17:00 02/14/20 17:00 Laboratory: WBC 5.1 X10^3/uL (3.6-10.0) 02/14/20 17:00 RBC 5.09 X10^6/uL (3.5-5.4) 02/14/20 17:00 Hgb 14.1 g/dL (12.0-16.0) 02/14/20 17:00 Hct 41.8 % (36.0-47.0) 02/14/20 17:00 MCV 82.1 fL (80.0-100.0) 02/14/20 17:00 MCH 27.7 pg (27.0-34.0) 02/14/20 17:00 MCHC 33.8 g/dL (33.0-35.0) 02/14/20 17:00 RDW 13.9 % (11.6-16.5) 02/14/20 17:00 Plt Count 140 X10^3/uL (150.0-450.0) L 02/14/20 17:00 MPV 8.7 fL (7.4-11.0) 02/14/20 17:00 Neut % (Auto) 46.3 % (42.0-75.0) 02/14/20 17:00 Lymph % (Auto) 43.7 % (21.0-51.0) 02/14/20 17:00 [place] % (Auto) 9.1 % (0.0-13.0) 02/14/20 17:00 Eos % (Auto) 0.5 % (0.9-2.9) L 02/14/20 17:00 Baso % (Auto) 0.4 % (0.2-1.0) 02/14/20 17:00 Neut # (Auto) 2.4 x10^3/uL (2.2-4.8) 02/14/20 17:00 Lymph # (Auto) 2.2 X10^3/uL (1.3-2.9) 02/14/20 17:00 [place] # (Auto) 0.5 x10^3/uL (0.3-0.8) 02/14/20 17:00 Eos # (Auto) 0.0 x10^3/uL (0.0-0.2) 02/14/20 17:00 Baso # (Auto) 0.0 X10^3/uL (0.0-0.1) 02/14/20 17:00 Absolute Nucleated RBC 0.1 /100WBC 02/14/20 17:00 Sodium 134 mmol/L (136-145) L 02/14/20 17:00 Corrected Sodium 138 mmol/L (136-145) 02/14/20 17:00 Potassium 3.5 mmol/L (3.5-5.1) 02/14/20 17:00 Chloride 96 mmol/L (98-107) L 02/14/20 17:00 Carbon Dioxide 23.6 mmol/L (21-32) 02/14/20 17:00 BUN 11 mg/dL (7-18) 02/14/20 17:00 Creatinine 0.88 mg/dL (0.55-1.02) 02/14/20 17:00 Est GFR (MDRD) Af Amer > 60 (>60) 02/14/20 17:00 Est GFR (MDRD) Non-Af > 60 (>60) 02/14/20 17:00 Glucose 278 mg/dL (65-99) H 02/14/20 17:00 Calcium 8.8 mg/dL (8.5-10.1) 02/14/20 17:00 Corrected Calcium TNP 02/14/20 17:00 Total Bilirubin 0.40 mg/dL (0.2-1.0) 02/14/20 17:00 AST 107 Units/L (15-37) H 02/14/20 17:00 ALT 105 Units/L (12-78) H 02/14/20 17:00 Alkaline Phosphatase 140 Units/L (46-116) H 02/14/20 17:00 Creatine Kinase 50 Units/L (26-192) 02/14/20 17:00 CK-MB (CK-2) < 1.0 ng/mL (0-4.0) 02/14/20 17:00 CK/CKMB % Calc 2.0 % (<4) 02/14/20 17:00 Troponin I < 0.02 ng/mL (0-1.5) 02/14/20 17:00 C-Reactive Protein 25.70 mg/L (0-3.0) H 02/14/20 17:00 B-Natriuretic Peptide < 5.0 pg/mL (0-79) 02/14/20 17:00 Total Protein 8.0 g/dL (6.4-8.2) 02/14/20 17:00 Albumin 3.6 g/dL (3.4-5.0) 02/14/20 17:00 Globulin 4.4 g/dL (2.5-4.5) 02/14/20 17:00 Albumin/Globulin Ratio 0.8 Ratio (1.1-2.1) L 02/14/20 17:00 XRAY XRAY Interpreted by: Radiologist X-ray Results: chest: patchy infiltrate bilaterally EKG Rate: 102 [place]: Normal Rhythm: NSR Block: None Hypertrophy: None Opioid Opioid Risk Tool Age (Errol box if 16-45): No History of Preadolescent Sexual Abuse: No Total: 0 Total Score Risk Category: Low Risk Copyright: Kelvin DUPONT predicting aberrant behaviors
[2020-02-14] MEDS ORDERED: DUONEB 0.5 MG/3 MG (3 mL) NEB ONE ×2 (16:53→17:11)
--- NOTE | 2020-02-14 17:15 | RAD ---
HISTORYcovid, worsening symptoms and sobSTUDYCHEST, 1 VIEWCOMPARISONNoneFINDINGSThe patient is slightly rotated. The cardiac silhouette is enlarged. Patchy infiltrate is suspected within the mid left lung and both lower lobes. Correlate clinically.IMPRESSIONCardiomegaly.Suspected patchy infiltrate bilaterally as noted above.Electronically signed by: DIOR WILSON (Feb 14, 2020 17:14:45)
[2020-02-14 17:16] LABS: BASOPHILS % (AUTO) 0.4 % (0.2-1.0); EOSINOPHILS % (AUTO) 0.5 % (0.9-2.9); HEMATOCRIT 41.8 % (36.0-47.0); HEMOGLOBIN 14.1 g/dL (12.0-16.0); LYMPHOCYTES # (AUTO) 2.2 X10^3/uL (1.3-2.9); LYMPHOCYTES % (AUTO) 43.7 % (21.0-51.0); MEAN CORPUSCULAR HEMOGLOBIN 27.7 pg (27.0-34.0); MEAN CORPUSCULAR HGB CONC 33.8 g/dL (33.0-35.0); MEAN CORPUSCULAR VOLUME 82.1 fL (80.0-100.0); MEAN PLATELET VOLUME 8.7 fL (7.4-11.0); MONOCYTES # (AUTO) 0.5 x10^3/uL (0.3-0.8); MONOCYTES % (AUTO) 9.1 % (0.0-13.0); NEUTROPHILS # (AUTO) 2.4 x10^3/uL (2.2-4.8); NEUTROPHILS % (AUTO) 46.3 % (42.0-75.0); PLATELET COUNT 140 X10^3/uL (150.0-450.0); RED BLOOD COUNT 5.09 X10^6/uL (3.5-5.4); RED CELL DISTRIBUTION WIDTH 13.9 % (11.6-16.5); WHITE BLOOD COUNT 5.1 X10^3/uL (3.6-10.0)
[2020-02-14 17:28] LABS: BLOOD UREA NITROGEN 11 mg/dL (7-18); CALCIUM 8.8 mg/dL (8.5-10.1); CARBON DIOXIDE 23.6 mmol/L (21-32); CHLORIDE 96 mmol/L (98-107); COR NA(FOR HYPERGLY) 138 mmol/L (136-145); CREATININE 0.88 mg/dL (0.55-1.02); SODIUM 134 mmol/L (136-145); TROPONIN I < 0.02 ng/mL (0-1.5); eGFR NON BLACK RACES > 60 (>60)
[2020-02-14 17:31] LABS: ALANINE AMINOTRANSFERASE 105 Units/L (12-78); ALBUMIN 3.6 g/dL (3.4-5.0); ALKALINE PHOSPHATASE 140 Units/L (46-116); ASPARTATE AMINO TRANSFERASE 107 Units/L (15-37); CREATINE KINASE 50 Units/L (26-192); CREATINE KINASE MB < 1.0 ng/mL (0-4.0)
--- NOTE | 2020-02-14 18:45 | DR.SOBA ---
HPI Time Seen Time Seen by Provider: 02/14/20 16:40 Primary Care Physician Primary Care Physician: GEE Complaints Chief Complaint:: PT C/O BEING COVID POSITIVE WITH WORSENING SYMPTOMS. PT STAES SHE HAS BEEN HAVING WORSE SHORTNESS OF BREATH, SEVERE HEADACHE, CHEST PAIN THAT RADIATES AROUND TO BACK. PT WAS DIAGNOSED ON THE . COVID-19 Coronavirus risk:travel/contact w/high risk person: No Has patient experienced Coronavirus symptoms: Yes Coronavirus symptoms experienced: Fever, Coughing and Shortness of Breath Source History Provided: Patient Mode of Arrival Mode of Arrival: Ambulatory Timing Onset of Chief Complaint: 02/13/20 If Chest Pain Location: Right Lower Chest, Left Lower Chest and Chest Wall PMH PMH Past Medical History: Yes Past Medical History: Asthma and Diabetes Past Surgical History: Yes Surgical History: Cholecystectomy and Hysterectomy Family History History of Family Medical Conditions: Yes Family Medical History: Cancer and [place] Social History Does any household member use tobacco: No Alcohol Use: None Do you use any recreational Drugs:: No Lives With: Family Lives Where: Home Travel Risk Coronavirus risk:travel/contact w/high risk person: No Has patient experienced Coronavirus symptoms: Yes Coronavirus symptoms experienced: Fever, Coughing and Shortness of Breath Infectious screening In the last 2 months have you had wt loss of >10#?: NO Have you had fever, night sweats or hemotysis?: No Have you traveled outside the country in the last 6 months?: No Isolation: Droplet PE Vital Signs Vitals: Temperature 98.2 F Pulse Rate 107 Respiratory Rate 20 Blood Pressure [Left Arm] 163/97 Blood Pressure [Right Arm] 140/76 Blood Pressure 129/90 O2 Sat by Pulse Oximetry 93 ROR Labs Reviewed Result Diagrams: 02/14/20 17:00 02/14/20 17:00 Laboratory: WBC 5.1 X10^3/uL (3.6-10.0) 02/14/20 17:00 RBC 5.09 X10^6/uL (3.5-5.4) 02/14/20 17:00 Hgb 14.1 g/dL (12.0-16.0) 02/14/20 17:00 Hct 41.8 % (36.0-47.0) 02/14/20 17:00 MCV 82.1 fL (80.0-100.0) 02/14/20 17:00 MCH 27.7 pg (27.0-34.0) 02/14/20 17:00 MCHC 33.8 g/dL (33.0-35.0) 02/14/20 17:00 RDW 13.9 % (11.6-16.5) 02/14/20 17:00 Plt Count 140 X10^3/uL (150.0-450.0) L 02/14/20 17:00 MPV 8.7 fL (7.4-11.0) 02/14/20 17:00 Neut % (Auto) 46.3 % (42.0-75.0) 02/14/20 17:00 Lymph % (Auto) 43.7 % (21.0-51.0) 02/14/20 17:00 [place] % (Auto) 9.1 % (0.0-13.0) 02/14/20 17:00 Eos % (Auto) 0.5 % (0.9-2.9) L 02/14/20 17:00 Baso % (Auto) 0.4 % (0.2-1.0) 02/14/20 17:00 Neut # (Auto) 2.4 x10^3/uL (2.2-4.8) 02/14/20 17:00 Lymph # (Auto) 2.2 X10^3/uL (1.3-2.9) 02/14/20 17:00 [place] # (Auto) 0.5 x10^3/uL (0.3-0.8) 02/14/20 17:00 Eos # (Auto) 0.0 x10^3/uL (0.0-0.2) 02/14/20 17:00 Baso # (Auto) 0.0 X10^3/uL (0.0-0.1) 02/14/20 17:00 Absolute Nucleated RBC 0.1 /100WBC 02/14/20 17:00 Sodium 134 mmol/L (136-145) L 02/14/20 17:00 Corrected Sodium 138 mmol/L (136-145) 02/14/20 17:00 Potassium 3.5 mmol/L (3.5-5.1) 02/14/20 17:00 Chloride 96 mmol/L (98-107) L 02/14/20 17:00 Carbon Dioxide 23.6 mmol/L (21-32) 02/14/20 17:00 BUN 11 mg/dL (7-18) 02/14/20 17:00 Creatinine 0.88 mg/dL (0.55-1.02) 02/14/20 17:00 Est GFR (MDRD) Af Amer > 60 (>60) 02/14/20 17:00 Est GFR (MDRD) Non-Af > 60 (>60) 02/14/20 17:00 Glucose 278 mg/dL (65-99) H 02/14/20 17:00 Calcium 8.8 mg/dL (8.5-10.1) 02/14/20 17:00 Corrected Calcium TNP 02/14/20 17:00 Total Bilirubin 0.40 mg/dL (0.2-1.0) 02/14/20 17:00 AST 107 Units/L (15-37) H 02/14/20 17:00 ALT 105 Units/L (12-78) H 02/14/20 17:00 Alkaline Phosphatase 140 Units/L (46-116) H 02/14/20 17:00 Creatine Kinase 50 Units/L (26-192) 02/14/20 17:00 CK-MB (CK-2) < 1.0 ng/mL (0-4.0) 02/14/20 17:00 CK/CKMB % Calc 2.0 % (<4) 02/14/20 17:00 Troponin I < 0.02 ng/mL (0-1.5) 02/14/20 17:00 C-Reactive Protein 25.70 mg/L (0-3.0) H 02/14/20 17:00 B-Natriuretic Peptide < 5.0 pg/mL (0-79) 02/14/20 17:00 Total Protein 8.0 g/dL (6.4-8.2) 02/14/20 17:00 Albumin 3.6 g/dL (3.4-5.0) 02/14/20 17:00 Globulin 4.4 g/dL (2.5-4.5) 02/14/20 17:00 Albumin/Globulin Ratio 0.8 Ratio (1.1-2.1) L 02/14/20 17:00 Opioid Opioid Risk Tool Age (Errol box if 16-45): No History of Preadolescent Sexual Abuse: No Total: 0 Total Score Risk Category: Low Risk Copyright: Kelvin DUPONT predicting aberrant behaviors
[2020-02-14] MEDS ORDERED: DUONEB 0.5 MG/3 MG (3 mL) NEB PRN (18:47)
[2020-02-14] MEDS ORDERED: NS 1000 ML 1,000 ML IV SCH (19:00)
[2020-02-14] MEDS ORDERED: REMDESIVIR (INVESTIGATIONAL DRUG GS-5734) 200 MG in NS 250 ML IV 250 ML IV SCH (19:00)
[2020-02-14] MEDS: ASCORBIC ACID INJ MULTI-DOSE VIAL 1,500 MG in NS 100 ML IV 100 ML IV SCH ×2 (21:58→22:00)
[2020-02-14] MEDS: VITAMIN D (1.25MG) PO SCH (21:59)
[2020-02-14] MEDS: PLAQUENIL PO SCH (22:00)
[2020-02-14] MEDS: VITAMIN A PO SCH (22:00)
[2020-02-14] MEDS: TRICOR TAB 160 MG PO SCH (22:00)
[2020-02-14] MEDS: ZINC SULFATE PO SCH (22:00)
[2020-02-14] MEDS: DECADRON TAB PO SCH (22:01)
[2020-02-14] MEDS: LOVENOX INJ 30 MG SYR SC SCH (22:02)
[2020-02-15] MEDS: ASCORBIC ACID INJ MULTI-DOSE VIAL 1,500 MG in NS 100 ML IV 100 ML IV SCH ×2 (04:35→09:15)
[2020-02-15] MEDS ORDERED: HumuLIN R SUBCUT PRN (05:07)
[2020-02-15] MEDS ORDERED: HumuLIN R ONE (05:11)
[2020-02-15 05:57] LABS: ALANINE AMINOTRANSFERASE 106 Units/L (12-78); ALBUMIN 3.3 g/dL (3.4-5.0); ALKALINE PHOSPHATASE 136 Units/L (46-116); ASPARTATE AMINO TRANSFERASE 92 Units/L (15-37); BLOOD UREA NITROGEN 13 mg/dL (7-18); CALCIUM 8.5 mg/dL (8.5-10.1); CARBON DIOXIDE 23.9 mmol/L (21-32); CHLORIDE 97 mmol/L (98-107); COR CA(FOR HYPOALB) 9.1 mg/dL (8.5-10.1); COR NA(FOR HYPERGLY) 140 mmol/L (136-145); SODIUM 134 mmol/L (136-145); TOTAL PROTEIN 7.5 g/dL (6.4-8.2); eGFR NON BLACK RACES > 60 (>60)
[2020-02-15 06:22] LABS: BASOPHILS % (AUTO) 0.2 % (0.2-1.0); HEMOGLOBIN 13.2 g/dL (12.0-16.0); LYMPHOCYTES # (AUTO) 1.3 X10^3/uL (1.3-2.9); MEAN CORPUSCULAR HEMOGLOBIN 27.6 pg (27.0-34.0); MEAN CORPUSCULAR HGB CONC 33.9 g/dL (33.0-35.0); MEAN CORPUSCULAR VOLUME 81.4 fL (80.0-100.0); MEAN PLATELET VOLUME 8.6 fL (7.4-11.0); MONOCYTES # (AUTO) 0.3 x10^3/uL (0.3-0.8); MONOCYTES % (AUTO) 6.1 % (0.0-13.0); NEUTROPHILS # (AUTO) 2.6 x10^3/uL (2.2-4.8); NEUTROPHILS % (AUTO) 62.7 % (42.0-75.0); PLATELET COUNT 134 X10^3/uL (150.0-450.0); RED BLOOD COUNT 4.79 X10^6/uL (3.5-5.4); WHITE BLOOD COUNT 4.2 X10^3/uL (3.6-10.0)
[2020-02-15] MEDS: PLAQUENIL PO SCH (09:15)
[2020-02-15] MEDS: VITAMIN A PO SCH (09:15)
[2020-02-15] MEDS: VITAMIN D (1.25MG) PO SCH (09:15)
[2020-02-15] MEDS: LOVENOX INJ 30 MG SYR SC SCH (09:15)
[2020-02-15] MEDS: TRICOR TAB 160 MG PO SCH (09:15)
[2020-02-15] MEDS: ZINC SULFATE PO SCH (09:15)
[2020-02-15] MEDS: DECADRON TAB PO SCH (09:15)
[2020-02-15 12:45] VITALS: BP 139/95
[2020-02-15] MEDS ORDERED: SNACK - Diabetic Appropriate PO SCH (20:00)
[2020-02-15] MEDS ORDERED: REMDESIVIR (INVESTIGATIONAL DRUG GS-5734) 100 MG in NS 250 ML IV 250 ML IV SCH (21:00)
[2020-02-16] MEDS ORDERED: VITAMIN D3 125 mcg (5,000 UNITS) PO SCH (09:00)
[2020-02-16] MEDS ORDERED: VITAMIN A PO SCH (09:00)
--- NOTE | 2020-02-24 03:04 | DR.SOBA ---
HPI Time Seen Time Seen by Provider: 02/14/20 16:40 Primary Care Physician Primary Care Physician: GEE Complaints Chief Complaint:: PT C/O BEING COVID POSITIVE WITH WORSENING SYMPTOMS. PT STAES SHE HAS BEEN HAVING WORSE SHORTNESS OF BREATH, SEVERE HEADACHE, CHEST PAIN THAT RADIATES AROUND TO BACK. PT WAS DIAGNOSED ON THE . COVID-19 Coronavirus risk:travel/contact w/high risk person: No Has patient experienced Coronavirus symptoms: Yes Coronavirus symptoms experienced: Fever, Coughing and Shortness of Breath Reviewed Nurses Notes Reviewed: Yes Source History Provided: Patient Mode of Arrival Mode of Arrival: Ambulatory Timing Onset of Chief Complaint: 02/13/20 If Chest Pain Location: Right Lower Chest, Left Lower Chest and Chest Wall PMH PMH Past Medical History: Yes Past Medical History: Asthma and Diabetes Past Surgical History: Yes Surgical History: Cholecystectomy and Hysterectomy Family History History of Family Medical Conditions: Yes Family Medical History: Cancer, [place] and Coronary Artery Disease Social History Does patient currently use any type of tobacco product: No Have you used tobacco products in the last 12 months: No Type of Tobacco Use: None Does any household member use tobacco: No Alcohol Use: None Do you use any recreational Drugs:: No Lives With: Spouse Lives Where: Home Travel Risk Coronavirus risk:travel/contact w/high risk person: No Has patient experienced Coronavirus symptoms: Yes Coronavirus symptoms experienced: Fever, Coughing and Shortness of Breath Infectious screening In the last 2 months have you had wt loss of >10#?: NO Have you had fever, night sweats or hemotysis?: No Have you traveled outside the country in the last 6 months?: No Isolation: Droplet PE Vital Signs Vitals: Temperature 98.2 F Pulse Rate 107 Respiratory Rate 20 Blood Pressure [Left Arm] 163/97 Blood Pressure [Right Arm] 140/76 Blood Pressure 129/90 O2 Sat by Pulse Oximetry 93 ROR Labs Reviewed Result Diagrams: 02/15/20 05:19 02/15/20 05:19 Laboratory: WBC 5.1 X10^3/uL (3.6-10.0) 02/14/20 17:00 RBC 5.09 X10^6/uL (3.5-5.4) 02/14/20 17:00 Hgb 14.1 g/dL (12.0-16.0) 02/14/20 17:00 Hct 41.8 % (36.0-47.0) 02/14/20 17:00 MCV 82.1 fL (80.0-100.0) 02/14/20 17:00 MCH 27.7 pg (27.0-34.0) 02/14/20 17:00 MCHC 33.8 g/dL (33.0-35.0) 02/14/20 17:00 RDW 13.9 % (11.6-16.5) 02/14/20 17:00 Plt Count 140 X10^3/uL (150.0-450.0) L 02/14/20 17:00 MPV 8.7 fL (7.4-11.0) 02/14/20 17:00 Neut % (Auto) 46.3 % (42.0-75.0) 02/14/20 17:00 Lymph % (Auto) 43.7 % (21.0-51.0) 02/14/20 17:00 [place] % (Auto) 9.1 % (0.0-13.0) 02/14/20 17:00 Eos % (Auto) 0.5 % (0.9-2.9) L 02/14/20 17:00 Baso % (Auto) 0.4 % (0.2-1.0) 02/14/20 17:00 Neut # (Auto) 2.4 x10^3/uL (2.2-4.8) 02/14/20 17:00 Lymph # (Auto) 2.2 X10^3/uL (1.3-2.9) 02/14/20 17:00 [place] # (Auto) 0.5 x10^3/uL (0.3-0.8) 02/14/20 17:00 Eos # (Auto) 0.0 x10^3/uL (0.0-0.2) 02/14/20 17:00 Baso # (Auto) 0.0 X10^3/uL (0.0-0.1) 02/14/20 17:00 Absolute Nucleated RBC 0.1 /100WBC 02/14/20 17:00 Sodium 134 mmol/L (136-145) L 02/14/20 17:00 Corrected Sodium 138 mmol/L (136-145) 02/14/20 17:00 Potassium 3.5 mmol/L (3.5-5.1) 02/14/20 17:00 Chloride 96 mmol/L (98-107) L 02/14/20 17:00 Carbon Dioxide 23.6 mmol/L (21-32) 02/14/20 17:00 BUN 11 mg/dL (7-18) 02/14/20 17:00 Creatinine 0.88 mg/dL (0.55-1.02) 02/14/20 17:00 Est GFR (MDRD) Af Amer > 60 (>60) 02/14/20 17:00 Est GFR (MDRD) Non-Af > 60 (>60) 02/14/20 17:00 Glucose 278 mg/dL (65-99) H 02/14/20 17:00 Calcium 8.8 mg/dL (8.5-10.1) 02/14/20 17:00 Corrected Calcium TNP 02/14/20 17:00 Total Bilirubin 0.40 mg/dL (0.2-1.0) 02/14/20 17:00 AST 107 Units/L (15-37) H 02/14/20 17:00 ALT 105 Units/L (12-78) H 02/14/20 17:00 Alkaline Phosphatase 140 Units/L (46-116) H 02/14/20 17:00 Creatine Kinase 50 Units/L (26-192) 02/14/20 17:00 CK-MB (CK-2) < 1.0 ng/mL (0-4.0) 02/14/20 17:00 CK/CKMB % Calc 2.0 % (<4) 02/14/20 17:00 Troponin I < 0.02 ng/mL (0-1.5) 02/14/20 17:00 C-Reactive Protein 25.70 mg/L (0-3.0) H 02/14/20 17:00 B-Natriuretic Peptide < 5.0 pg/mL (0-79) 02/14/20 17:00 Total Protein 8.0 g/dL (6.4-8.2) 02/14/20 17:00 Albumin 3.6 g/dL (3.4-5.0) 02/14/20 17:00 Globulin 4.4 g/dL (2.5-4.5) 02/14/20 17:00 Albumin/Globulin Ratio 0.8 Ratio (1.1-2.1) L 02/14/20 17:00 Opioid Opioid Risk Tool Age (Errol box if 16-45): No History of Preadolescent Sexual Abuse: No Total: 0 Total Score Risk Category: Low Risk Copyright: Kelvin predicting aberrant behaviors Instructions Instructions: Upper Respiratory Infection, Pediatric, [id number] Dizziness Community-Acquired Pneumonia, Adult, [id number]
--- NOTE | 2020-02-26 11:10 | DR.SOBA ---
HPI Time Seen Time Seen by Provider: 02/14/20 16:40 Primary Care Physician Primary Care Physician: GEE Complaints Chief Complaint:: PT C/O BEING COVID POSITIVE WITH WORSENING SYMPTOMS. PT STAES SHE HAS BEEN HAVING WORSE SHORTNESS OF BREATH, SEVERE HEADACHE, CHEST PAIN THAT RADIATES AROUND TO BACK. PT WAS DIAGNOSED ON THE . COVID-19 Coronavirus risk:travel/contact w/high risk person: No Has patient experienced Coronavirus symptoms: Yes Coronavirus symptoms experienced: Fever, Coughing and Shortness of Breath Source History Provided: Patient Mode of Arrival Mode of Arrival: Ambulatory Timing Onset of Chief Complaint: 02/13/20 If Chest Pain Location: Right Lower Chest, Left Lower Chest and Chest Wall PMH PMH Past Medical History: Yes Past Medical History: Asthma and Diabetes Past Surgical History: Yes Surgical History: Cholecystectomy and Hysterectomy Family History History of Family Medical Conditions: Yes Family Medical History: Cancer, [place] and Coronary Artery Disease Social History Does patient currently use any type of tobacco product: No Have you used tobacco products in the last 12 months: No Type of Tobacco Use: None Does any household member use tobacco: No Alcohol Use: None Do you use any recreational Drugs:: No Lives With: Spouse Lives Where: Home Travel Risk Coronavirus risk:travel/contact w/high risk person: No Has patient experienced Coronavirus symptoms: Yes Coronavirus symptoms experienced: Fever, Coughing and Shortness of Breath Infectious screening In the last 2 months have you had wt loss of >10#?: NO Have you had fever, night sweats or hemotysis?: No Have you traveled outside the country in the last 6 months?: No Isolation: Droplet ROS Review of Systems Constitutional: Fever Eyes: No Symptoms Reported ENTM: No Symptoms Reported Respiratoy: Short of Breath Cardiovascular: No Symptoms Reported Gastrointestinal/Abdominal: No Symptoms Reported Genitourinary: No Symptoms Reported Neurological: Headache Musculoskeletal: No Symptoms Reported Integumentary: No Symptoms Reported Hematologic/Lymphatic: No Symptoms Reported Endocrine: No Symptoms Reported Psychiatric: No Symptoms Reported All Other Systems: Reviewed and Negative PE Vital Signs Vitals: Temperature 98.2 F Pulse Rate 107 Respiratory Rate 20 Blood Pressure [Left Arm] 163/97 Blood Pressure [Right Arm] 140/76 Blood Pressure 129/90 O2 Sat by Pulse Oximetry 93 General Limitations: No Limitations General Appearance: Alert and In No Apparent Distress Head Head Exam: Normal Inspection, Atraumatic and Normocephalic Eyes Eye exam: Normal Appearance and EOMI ENT ENT Exam: Normal Exam and Normal Oropharynx Neck Neck Exam: Normal Inspection, Full ROM and Trachea Midline Chest Chest Inspection: Normal Inspection Respiratory Respiratory Exam: negative Respiratory Distress Respiratory Exam: Bilateral: Wheezing Cardiovascular Cardiovascular Exam: Regular Rate Abdominal Exam Abdominal Exam: Normal Inspection Extremities Extremities Exam: Normal Inspection and Full ROM Back Back Exam: Normal Inspection Neurologic Neurological Exam: Alert, Oriented X3 and CN II-XII Intact Psychiatric Psychiatric Exam: Depressed Skin Skin Exam: Normal Color ROR Labs Reviewed Result Diagrams: 02/15/20 05:19 02/15/20 05:19 Laboratory: WBC 5.1 X10^3/uL (3.6-10.0) 02/14/20 17:00 RBC 5.09 X10^6/uL (3.5-5.4) 02/14/20 17:00 Hgb 14.1 g/dL (12.0-16.0) 02/14/20 17:00 Hct 41.8 % (36.0-47.0) 02/14/20 17:00 MCV 82.1 fL (80.0-100.0) 02/14/20 17:00 MCH 27.7 pg (27.0-34.0) 02/14/20 17:00 MCHC 33.8 g/dL (33.0-35.0) 02/14/20 17:00 RDW 13.9 % (11.6-16.5) 02/14/20 17:00 Plt Count 140 X10^3/uL (150.0-450.0) L 02/14/20 17:00 MPV 8.7 fL (7.4-11.0) 02/14/20 17:00 Neut % (Auto) 46.3 % (42.0-75.0) 02/14/20 17:00 Lymph % (Auto) 43.7 % (21.0-51.0) 02/14/20 17:00 [place] % (Auto) 9.1 % (0.0-13.0) 02/14/20 17:00 Eos % (Auto) 0.5 % (0.9-2.9) L 02/14/20 17:00 Baso % (Auto) 0.4 % (0.2-1.0) 02/14/20 17:00 Neut # (Auto) 2.4 x10^3/uL (2.2-4.8) 02/14/20 17:00 Lymph # (Auto) 2.2 X10^3/uL (1.3-2.9) 02/14/20 17:00 [place] # (Auto) 0.5 x10^3/uL (0.3-0.8) 02/14/20 17:00 Eos # (Auto) 0.0 x10^3/uL (0.0-0.2) 02/14/20 17:00 Baso # (Auto) 0.0 X10^3/uL (0.0-0.1) 02/14/20 17:00 Absolute Nucleated RBC 0.1 /100WBC 02/14/20 17:00 Sodium 134 mmol/L (136-145) L 02/14/20 17:00 Corrected Sodium 138 mmol/L (136-145) 02/14/20 17:00 Potassium 3.5 mmol/L (3.5-5.1) 02/14/20 17:00 Chloride 96 mmol/L (98-107) L 02/14/20 17:00 Carbon Dioxide 23.6 mmol/L (21-32) 02/14/20 17:00 BUN 11 mg/dL (7-18) 02/14/20 17:00 Creatinine 0.88 mg/dL (0.55-1.02) 02/14/20 17:00 Est GFR (MDRD) Af Amer > 60 (>60) 02/14/20 17:00 Est GFR (MDRD) Non-Af > 60 (>60) 02/14/20 17:00 Glucose 278 mg/dL (65-99) H 02/14/20 17:00 Calcium 8.8 mg/dL (8.5-10.1) 02/14/20 17:00 Corrected Calcium TNP 02/14/20 17:00 Total Bilirubin 0.40 mg/dL (0.2-1.0) 02/14/20 17:00 AST 107 Units/L (15-37) H 02/14/20 17:00 ALT 105 Units/L (12-78) H 02/14/20 17:00 Alkaline Phosphatase 140 Units/L (46-116) H 02/14/20 17:00 Creatine Kinase 50 Units/L (26-192) 02/14/20 17:00 CK-MB (CK-2) < 1.0 ng/mL (0-4.0) 02/14/20 17:00 CK/CKMB % Calc 2.0 % (<4) 02/14/20 17:00 Troponin I < 0.02 ng/mL (0-1.5) 02/14/20 17:00 C-Reactive Protein 25.70 mg/L (0-3.0) H 02/14/20 17:00 B-Natriuretic Peptide < 5.0 pg/mL (0-79) 02/14/20 17:00 Total Protein 8.0 g/dL (6.4-8.2) 02/14/20 17:00 Albumin 3.6 g/dL (3.4-5.0) 02/14/20 17:00 Globulin 4.4 g/dL (2.5-4.5) 02/14/20 17:00 Albumin/Globulin Ratio 0.8 Ratio (1.1-2.1) L 02/14/20 17:00 Opioid Opioid Risk Tool Age (Errol box if 16-45): No History of Preadolescent Sexual Abuse: No Total: 0 Total Score Risk Category: Low Risk Copyright: Kelvin DUPONT predicting aberrant behaviors Diagnosis Discharge Problem: Pneumonia due to 2019-nCoV Instructions Instructions: Upper Respiratory Infection, Pediatric, [id number] Dizziness Community-Acquired Pneumonia, Adult, [id number]
== END 2020-02-15 16:10 | disposition home or self-care (01) ==
LOC: ER 16:32 → INTOOBSV 18:36 → MED/SURG 18:36
PROVIDERS: ADMIT Obstetrics & Gynecology Obstetrics; ATTEND Obstetrics & Gynecology Obstetrics
DX: U07.1 COVID-19; R06.02 Shortness of breath; J12.89 Other viral pneumonia